=== PATIENT | male | born 1970 | race Two or more races ===

== ENCOUNTER 2019-09-02 21:50 | Emergency (ER) | payer OTHER ==
[~2019-09-02] VITALS: Ht 170.2 cm; Wt 122.0 kg
[2019-09-02 22:03] VITALS: BP 155/95
[2019-09-02] MEDS ORDERED: TRANEXAMIC ACID 1,000 MG/10 ML IV ONE (23:00)
[2019-09-02] MEDS ORDERED: TRANEXAMIC ACID 1,000 MG/10 ML TP ONE (23:00)
[2019-09-03] MEDS ORDERED: OXYMETAZOLINE HCL NASAL SPRAY 15ML BOTHNSTRLS SCH (09:00)
== END 2019-09-03 01:01 | disposition home or self-care (01) ==
LOC: ER 21:50
DX: S02.2XXA Fracture of nasal bones, initial encounter for closed fracture (principal); R04.0 Epistaxis; Y08.89XA Assault by other specified means, initial encounter; Y93.89 Activity, other specified; Y92.89 Other specified places as the place of occurrence of the external cause; Y99.8 Other external cause status; E11.9 Type 2 diabetes mellitus without complications; E78.00 Pure hypercholesterolemia, unspecified; I10 Essential (primary) hypertension; Z88.0 Allergy status to penicillin
CPT/HCPCS: 99282